=== PATIENT | female | born 1990 | race Caucasian/White ===

== ENCOUNTER → 2020-04-29 14:48 | Outpatient (BNVA) | payer OTHER, SELFPAY | PROVIDERS: PCP Internal Medicine; Visit Provider Nurse Practitioner | DX: Z76.89 Persons encountering health services in other specified circumstances (principal) ==

== ENCOUNTER 2020-04-30 08:27 | Outpatient (REF) | payer OTHER, SELFPAY ==
[2020-04-30 11:30] LABS: Hemoglobin 13.7 g/dl (12.0-16.0); Mean Corpuscular HGB Conc 32.6 g/dl (31.0-35.0); Mean Corpuscular Hemoglobin 30.1 pg (27.0-33.0); Mean Corpuscular Volume 92.3 fL (80-98); Mean Platelet Volume 10.7 fL (9.4-12.3); Platelet Count 287 X10*3/uL (160-400); Red Blood Count 4.55 X10*6/uL (4.20-5.50); Red Cell Distribution Width 12.4 % (11.0-16.0); White Blood Count 4.8 X10*3/uL (4.8-10.8)
[2020-04-30 11:38] LABS: Alanine Aminotransferase 97 U/L (0-31); Alkaline Phosphatase 53 U/L (39-117); Anion Gap 15 (12-20); Aspartate Amino Transferase 57 U/L (5-31); Blood Urea Nitrogen 15 mg/dL (9-16); Calcium 8.9 mg/dL (8.4-10.2); Carbon Dioxide 26 mmol/L (22-29); Chloride 104 mmol/L (96-108); Cholesterol 235 mg/dL; Estimated Glomerular Filt Rate > 60; Glucose Fasting 84 mg/dL (60-99); HDL Cholesterol 67 mg/dL; LDL Cholesterol Calculated 154 mg/dl; Potassium 4.5 mmol/l (3.3-5.1); Sodium 140 mmol/L (135-145); Total Protein 7.2 g/dL (6.5-8.0); Triglycerides 73 mg/dL
[2020-04-30 12:02] LABS: Thyroid Stimulating Hormone 1.54 mIU/mL (0.32-4.0)
== END 2020-04-30 08:28 | disposition home or self-care (01) ==
LOC: HO.HMGCLDS 08:27
PROVIDERS: PCP Internal Medicine; Visit Provider Internal Medicine
DX: E66.3 Overweight (principal); K58.9 Irritable bowel syndrome, unspecified; Z00.00 Encounter for general adult medical examination without abnormal findings
CPT/HCPCS: 36415; 80053; 80061; 84443; 85027

== ENCOUNTER 2020-05-06 08:15 | Outpatient (REF) | payer OTHER, SELFPAY ==
--- NOTE | 2020-05-06 08:19 | FL_ITS ---
EXAMINATION: FL SMALL BOWEL SERIES CLINICAL INFORMATION: Lower abdominal pain COMPARISON: None TECHNIQUE: Following a insect control aide image of the abdomen, contrast was administered orally, and interval abdominal radiographs were performed to assess for contrast progression through the small bowel. Following contrast transit through the small bowel and into the colon, the patient was placed on the fluoroscopy table, and multiple spot images were obtained. FINDINGS: [employer] image of the abdomen demonstrates a normal bowel gas pattern. There is normal transit time of contrast material through the small bowel, with contrast present in the colon by 1 hour 90 minutes. Small bowel loops are of normal caliber throughout the abdomen and pelvis. The jejunal and ileal fold patterns are normal, without evidence of abnormal thickening. No fixed regions of luminal narrowing are seen to suggest stricturing. The terminal ileum demonstrates a normal appearance. FLUOROSCOPY TIME: 0.2 DOSE AREA PRODUCT: 4.6 whitehead per centimeter squared. Total dose 14 mgy. 3 saved fluoroscopic images and 9 overheads. FL/FL small bowel follow through IMPRESSION: Normal small bowel series.
== END 2020-05-06 08:16 | disposition home or self-care (01) ==
LOC: HO.XRAY 08:15
PROVIDERS: PCP Internal Medicine; Visit Provider Nurse Practitioner
DX: R10.30 Lower abdominal pain, unspecified (principal)
CPT/HCPCS: 74250

== ENCOUNTER → 2020-05-22 13:41 | Outpatient (BNVA) | payer OTHER, SELFPAY | PROVIDERS: PCP Internal Medicine; Visit Provider Nurse Practitioner | DX: Z76.89 Persons encountering health services in other specified circumstances (principal) ==

== ENCOUNTER 2020-10-20 11:22 | Outpatient (REF) | payer OTHER, SELFPAY ==
[2020-10-20 14:11] LABS: MANUAL DIFF FLAG NO
[2020-10-20 14:24] LABS: Basophils Absolute Auto 0.1 X10*3/uL (0.0-0.2); Basophils Percent Auto 1.2 % (0-2); Eosinophils Absolute Auto 0.1 X10*3/uL (0.0-0.4); Eosinophils Percent Auto 1.4 % (0-4); Hematocrit 39.6 % (37-47); Hemoglobin 13.3 g/dl (12.0-16.0); Imm Gran Abs Auto 0.01 X10*3/uL (0.00-0.03); Imm Gran Pct Auto 0.2 % (0.0-0.4); Lymphocytes Absolute Auto 2.1 X10*3/uL (1.2-4.9); Lymphocytes Percent Auto 41.1 % (20-40); Mean Corpuscular HGB Conc 33.6 g/dl (31.0-35.0); Mean Corpuscular Hemoglobin 30.2 pg (27.0-33.0); Mean Corpuscular Volume 89.8 fL (80-98); Mean Platelet Volume 11.1 fL (9.4-12.3); Monocytes Absolute Auto 0.4 X10*3/uL (0.1-1.2); Monocytes Percent Auto 7.2 % (2-11); Neutrophils Absolute Auto 2.5 X10*3/uL (2.0-8.3); Neutrophils Percent Auto 48.9 % (45-73); Platelet Count 260 X10*3/uL (160-400); Red Blood Count 4.41 X10*6/uL (4.20-5.50); White Blood Count 5.1 X10*3/uL (4.8-10.8)
[2020-10-20 14:29] LABS: Anion Gap 15 (12-20); Blood Urea Nitrogen 15 mg/dL (9-16); Calcium 8.7 mg/dL (8.4-10.2); Carbon Dioxide 21 mmol/L (22-29); Chloride 109 mmol/L (96-108); Estimated Glomerular Filt Rate > 60; Glucose Random 89 mg/dL (60-115); Iron 87 mcg/dL (30-160); Percent Iron Saturation 19 % (15-50); Potassium 4.2 mmol/L (3.3-5.1); Sodium 141 mmol/L (135-145); Total Iron Binding Capacity 459 mcg/dL (228-428); Unsaturated Iron Binding 372 ug/dL
[2020-10-20 15:08] LABS: Vitamin B12 326 pg/mL (200-900)
== END 2020-10-20 11:23 | disposition home or self-care (01) ==
LOC: HO.HMGCLDS 11:22
PROVIDERS: PCP Internal Medicine; Visit Provider Physician Assistant
DX: R11.0 Nausea (principal); R53.1 Weakness; K58.9 Irritable bowel syndrome, unspecified; Z86.39 Personal history of other endocrine, nutritional and metabolic disease
CPT/HCPCS: 36415; 80048; 82607; 82746; 83540; 84443; 85025

== ENCOUNTER 2020-10-29 14:34 | Outpatient (REF) | payer OTHER, SELFPAY ==
[2020-11-05 03:52] LABS: HPV mRNA E6/E7 Not Detected (Not Detected)
== END 2020-10-29 14:35 | disposition home or self-care (01) ==
LOC: HO.LAB 14:34
PROVIDERS: Visit Provider Internal Medicine
DX: Z01.419 Encounter for gynecological examination (general) (routine) without abnormal findings (principal); Z11.51 Encounter for screening for human papillomavirus (HPV)
CPT/HCPCS: 87624; 88142

== ENCOUNTER 2021-03-13 18:15 | Emergency (ER) | payer OTHER, SELFPAY ==
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
[2021-03-13 18:34] VITALS: BP 134/78; PULSE 100; RESP 16; TEMP 36.8; O2SAT 99; BMI 38.4
[2021-03-13 20:45] VITALS: BP 125/80; PULSE 98; RESP 18; TEMP 36.6; O2SAT 96
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
[2021-03-13 21:28] VITALS: BP 133/84; PULSE 100; RESP 20; O2SAT 100
[2021-03-13 21:34] LABS: MANUAL DIFF FLAG NO
[2021-03-13 21:35] LABS: Basophils Absolute Auto 0.1 X10*3/uL (0.0-0.2); Basophils Percent Auto 0.5 % (0-2); Eosinophils Percent Auto 0.4 % (0-4); Hematocrit 39.9 % (37-47); Hemoglobin 13.7 g/dl (12.0-16.0); Imm Gran Abs Auto 0.04 X10*3/uL (0.00-0.03); Imm Gran Pct Auto 0.4 % (0.0-0.4); Lymphocytes Absolute Auto 2.3 X10*3/uL (1.2-4.9); Mean Corpuscular HGB Conc 34.3 g/dl (31.0-35.0); Mean Corpuscular Hemoglobin 30.2 pg (27.0-33.0); Mean Corpuscular Volume 88.1 fL (80-98); Mean Platelet Volume 10.3 fL (9.4-12.3); Monocytes Percent Auto 8.6 % (2-11); Neutrophils Absolute Auto 7.6 X10*3/uL (2.0-8.3); Neutrophils Percent Auto 69.1 % (45-73); Platelet Count 276 X10*3/uL (160-400); Red Blood Count 4.53 X10*6/uL (4.20-5.50)
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
[2021-03-13 21:40] LABS: Prothrombin Time 11.6 SEC (9.9-13.0)
[2021-03-13] MEDS: Ketorolac Tromethamine 15 MG/ML VIAL IVPUSH (21:45)
[2021-03-13] MEDS: LORazepam 2 MG/ML VIAL 0.25 MG IVPUSH (21:46)
[2021-03-13 21:51] LABS: Alanine Aminotransferase 40 U/L (0-31); Albumin Level 4.2 g/dL (3.5-5.0); Alkaline Phosphatase 48 U/L (39-117); Anion Gap 13 (12-20); Aspartate Amino Transferase 28 U/L (5-31); Bilirubin Total 0.9 mg/dL (0.0-1.0); Blood Urea Nitrogen 13 mg/dL (9-16); Calcium 9.7 mg/dL (8.4-10.2); Carbon Dioxide 26 mmol/L (22-29); Chloride 106 mmol/L (96-108); Creatinine Clr Calc Pharmacy 124.9; Estimated Glomerular Filt Rate > 60; Ethanol < 10 mg/dL; Glucose Random 100 mg/dL (60-115); Lipase 10 U/L (8-78); Potassium 4.1 mmol/L (3.3-5.1); Sodium 141 mmol/L (135-145); Total Protein 7.4 g/dL (6.5-8.0)
[2021-03-13 21:57] LABS: HCG Quantitative < 2 mIU/mL
[2021-03-13 21:58] LABS: Troponin-I High Sensitivity < 3.5 ng/L (<3.5-17.0)
[2021-03-13] MEDS: iohexoL 350 MG/ML 100 ML INFUS..BTL IV (22:10)
[2021-03-14] MEDS: Acetaminophen 325 MG TABLET 975 MG PO (00:10)
[2021-03-14 00:11] VITALS: RESP 16
[2021-03-14] MEDS: Diphth,Pertus(ACell),Tet Adult 0.5 ML SYRINGE IM (00:11)
== END 2021-03-14 00:50 | disposition home or self-care (01) ==
PROVIDERS: Emergency Provider Student in an Organized Health Care Education/Training Program
DX: S16.1XXA Strain of muscle, fascia and tendon at neck level, initial encounter (principal); M54.2 Cervicalgia; G44.309 Post-traumatic headache, unspecified, not intractable; M54.5 Low back pain; M25.512 Pain in left shoulder; M25.511 Pain in right shoulder; R10.9 Unspecified abdominal pain; V43.52XA Car driver injured in collision with other type car in traffic accident, initial encounter; Y93.9 Activity, unspecified; Y92.410 Unspecified street and highway as the place of occurrence of the external cause; Y99.9 Unspecified external cause status; Z79.899 Other long term (current) drug therapy
CPT/HCPCS: 36415; 70450; 70491; 71260; 73030; 73060; 74177; 80053; 82077; 83690; 84484; 84702; 85025; 85610; 86850; 86900; 86901; 90471; 90715; 93005; 96374; 96375; 99284; J1885; J2060; Q9967

== ENCOUNTER 2021-04-10 14:27 | Outpatient (REF) | payer OTHER, SELFPAY ==
[2021-04-10 16:39] LABS: Cholesterol 196 mg/dL; HDL Cholesterol 48 mg/dL; LDL Cholesterol Calculated 126 mg/dl; Triglycerides 113 mg/dL
== END 2021-04-10 14:28 | disposition home or self-care (01) ==
LOC: HO.HMGCLDS 14:27
PROVIDERS: PCP Internal Medicine; Visit Provider Internal Medicine
DX: Z00.00 Encounter for general adult medical examination without abnormal findings (principal)
CPT/HCPCS: 36415; 80061

== ENCOUNTER 2021-04-20 11:48 | Outpatient (REF) | payer OTHER, SELFPAY ==
[2021-04-23 00:57] LABS: TS Negative Control Passed; TS Panel A 0; TS Panel B 1; TS Positive Control Passed; TSpotTB Negative (SeeBelow)
== END 2021-04-20 11:49 | disposition home or self-care (01) ==
LOC: HO.HMGCLDS 11:48
PROVIDERS: PCP Internal Medicine; Visit Provider Internal Medicine
DX: Z11.1 Encounter for screening for respiratory tuberculosis (principal)
CPT/HCPCS: 36415; 86481

== ENCOUNTER 2021-05-04 10:00 | Outpatient (RCR) | payer OTHER, SELFPAY ==
--- NOTE | 2021-02-23 08:56 | MHC.PT.EP ---
[facility] [place] Office [place] Office [place] Office [address] Netta Rivera [address] [phone] F: [phone] F: [phone] F: [phone] F: [phone] Physical Therapy Plan of Care Date of Evaluation: Date of Surgery: N/A Diagnosis: herniated intervertebral disc of lumbar spine Assessment: 30 y/o RHD F referred for herniated intervertebral disc of lumbar spine presents with s/s consistent with postural dysfunction and upper crossed syndrome. She also reports cervical pain and MD was called for updated script. 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 Examination shows poor seated and standing posture with dowager's hump at C7, forward head, rounded shoulders, and increased thoracic curvature. Pt demonstrates limited shoulder flexion ROM, limited cervical ROM, decreased strength of shoulder muscles, and decreased strength of scapular musculature. Recommend PT 2x/week for 5 weeks to address impairments, implement HEP, and optimize functional mobility. Frequency and Duration: The patient will be seen 2x/week for 5 weeks Short Term Goals: 2 weeks: 1. I with HEP 2. Pt will demonstrate improved seated posture with teach back method of use of lumbar roll in seated 3. Pt will increase strength of scapular muscles B by 1 MMT score Half-Way Goals: 5 weeks: 1. I with HEP and self-management of sx 2. Pt will increase B shoulder flexion by >10 degrees to allow for improved overhead function 3. Pt will be able to work full shift with <3/10 pain in neck 4. Demonstrate proper body mechanics with rolling pts without cues Treatment Plan: Modalities to reduce pain, spasms and effusion. Manual therapy to restore motion and function. Therapeutic exercise to improve strength and flexibility. Neuromuscular re-education for posture and balance. Therapeutic activities to return to functional activities of daily living. Electronically signed by: Parisa Hickman PT Please sign and return to therapist. Thank you for your referral.
--- NOTE | 2021-05-15 08:24 | MHC.PT.DC ---
[facility] [place] Office [place] Office [place] Office [address] Netta Rivera 140 [facility] [phone] F: [phone] F: [phone] F: [phone] F: [phone] Physical Therapy Discharge Report Diagnosis: herniated intervertebral disc of lumbar spine Date of Surgery: N/A Date of Evaluation: 02/23/21 Date of Discharge: 05/15/21 Treatments to Date: 15 Cancellations to Date: 2 No Shows to Date: 0 Discharge Status: Achieved Goals Improved Function Independent with HEP Discharge Summary: Pt I with HEP and appropriate for d/c. Electronically signed by: Parisa Hickman PT Please sign and return to therapist. Thank you for your referral.
== END 2021-05-15 08:25 | disposition home or self-care (01) ==
LOC: HO.PTCHIC 10:00
PROVIDERS: PCP Internal Medicine; Visit Provider Internal Medicine
DX: M51.36 Other intervertebral disc degeneration, lumbar region (principal)
CPT/HCPCS: 97110; 97140; 97161

== ENCOUNTER 2021-07-01 07:00 | Outpatient (REF) | payer OTHER, SELFPAY ==
[2021-07-01 08:25] LABS: Influenza A PCR NEGATIVE (Negative); Influenza B PCR NEGATIVE (Negative); Resp Syncy Virus RNA Qual PCR NEGATIVE (Negative); SARS COV2 PCR INHOUSE NEGATIVE (Negative)
== END 2021-07-01 07:01 | disposition home or self-care (01) ==
LOC: HO.LAB 07:00
PROVIDERS: Visit Provider Internal Medicine
DX: Z20.822 Contact with and (suspected) exposure to COVID-19 (principal)
CPT/HCPCS: 0241U

== ENCOUNTER 2021-07-10 18:52 | Outpatient (REF) | payer OTHER, SELFPAY ==
[2021-07-10 19:17] LABS: COVID-19 Test Positive (Negative); IDNOW Serial# 9DD0AD1C
== END 2021-07-10 18:53 | disposition home or self-care (01) ==
LOC: HO.LAB 18:52
PROVIDERS: Referring Provider Internal Medicine; Visit Provider Internal Medicine
DX: Z20.822 Contact with and (suspected) exposure to COVID-19 (principal)
CPT/HCPCS: 87635

== ENCOUNTER 2021-08-13 11:04 | Outpatient (REF) | payer OTHER, SELFPAY ==
[2021-08-13 12:44] LABS: HCG Quantitative < 2 mIU/mL
== END 2021-08-13 11:05 | disposition home or self-care (01) ==
LOC: HO.LAB 11:04
PROVIDERS: PCP Internal Medicine; Visit Provider Physician Assistant
DX: N93.9 Abnormal uterine and vaginal bleeding, unspecified (principal)
CPT/HCPCS: 36415; 84702

== ENCOUNTER 2021-08-13 14:13 | Emergency (ER) | payer OTHER, SELFPAY ==
--- NOTE | ~2021-08-13 | US_ITS ---
EXAMINATION: ULTRASOUND PELVIC, COMPLETE CLINICAL INFORMATION: Bilateral pelvic pain. Left adnexal pain.-Vaginal bleeding COMPARISON: CT scan abdomen pelvis 08/13/2021. Pelvic ultrasound 07/14/2009 TECHNIQUE: Transvaginal: Used to better visualize pelvic structures Transabdominal: Not adequate for visualization. Spectral Doppler and color Doppler exam was utilized. LMP: 3 weeks ago FINDINGS: UTERUS: Uterus the midshaft position during transvaginal exam. Uterus is anteverted on the transabdominal study retroverted on transvaginal study. There is a myometrial fibroid in the anterior body measuring 1.3 x 1.2 x 1.3 cm. The uterus overall measures 8.4 x 3.9 x 4.2 cm. Endometrial thickness 0.9 cm. Nabothian cysts. ADNEXA: Ovarian vascularity:Doppler demonstrates both arterial and venous vascular flow in the right and left ovary. No evidence of ovarian torsion. Right Ovary: 2.9 x 1.8 x 1.7 cm. Volume 4.7 mL Left Ovary: 2.5 x 1.5 x 1.3 cm. Volume 2.6 mL Cul-de-sac: Small volume of simple fluid. US/US pelvic and transvaginal IMPRESSION: Normal ultrasound of pelvis.
--- NOTE | ~2021-08-13 | US_ITS ---
EXAMINATION: ULTRASOUND PELVIC, COMPLETE CLINICAL INFORMATION: Bilateral pelvic pain. Left adnexal pain.-Vaginal bleeding COMPARISON: CT scan abdomen pelvis 08/13/2021. Pelvic ultrasound 07/14/2009 TECHNIQUE: Transvaginal: Used to better visualize pelvic structures Transabdominal: Not adequate for visualization. Spectral Doppler and color Doppler exam was utilized. LMP: 3 weeks ago FINDINGS: UTERUS: Uterus the midshaft position during transvaginal exam. Uterus is anteverted on the transabdominal study retroverted on transvaginal study. There is a myometrial fibroid in the anterior body measuring 1.3 x 1.2 x 1.3 cm. The uterus overall measures 8.4 x 3.9 x 4.2 cm. Endometrial thickness 0.9 cm. Nabothian cysts. ADNEXA: Ovarian vascularity:Doppler demonstrates both arterial and venous vascular flow in the right and left ovary. No evidence of ovarian torsion. Right Ovary: 2.9 x 1.8 x 1.7 cm. Volume 4.7 mL Left Ovary: 2.5 x 1.5 x 1.3 cm. Volume 2.6 mL Cul-de-sac: Small volume of simple fluid. US/US pelvic ovarian doppler IMPRESSION: Normal ultrasound of pelvis.
--- NOTE | ~2021-08-13 | CT_ITS ---
EXAMINATION: CT ABDOMEN AND PELVIS WITHOUT CONTRAST CLINICAL INFORMATION: CVA tenderness on the right COMPARISON: CT abdomen pelvis 03/13/2021 TECHNIQUE: Multidetector volumetric imaging was performed from the superior aspect of the liver through the pubic symphysis. Sagittal and coronal reformatted images were obtained on the technologist's workstation. This CT examination was performed using dose optimization techniques as appropriate, variously including the following: *Automated exposure control *Adjustment of mA and/or kV according to patient size (this includes techniques or standardized protocols for targeted exams where dose is matched to indication/reason for exam; i.e. extremities or head) *Use of iterative reconstruction technique DLP: 989 mGy-cm FINDINGS: LUNG BASES: The visualized lung bases are unremarkable. LIVER, GALLBLADDER, AND BILIARY TREE: The liver is enlarged measuring 19.4 cm in greatest length and demonstrates hepatic steatosis. Similar findings were present on 03/13/2021. No focal hepatic lesion or biliary ductal dilatation is present. The gallbladder is contracted but otherwise unremarkable with no evidence of radiopaque gallstones, gallbladder wall thickening, or obvious pericholecystic inflammatory changes. PANCREAS: Unremarkable. SPLEEN: Unremarkable. ADRENAL GLANDS: Unremarkable. KIDNEYS AND URETERS: The kidneys are normal in size, shape, and attenuation. No hydronephrosis, hydroureter, or calculi seen. No perinephric stranding. BLADDER: The bladder is empty but no abnormality is seen. GASTROINTESTINAL TRACT: The small and large bowel are unremarkable. The appendix is unremarkable. ABDOMINAL WALL: No significant hernia is appreciated. LYMPH NODES: Normal. VASCULAR: Unremarkable. PELVIC VISCERA: Unremarkable. OSSEOUS STRUCTURES: Unremarkable. CT/CT abdomen pelvis wo con IMPRESSION: Enlarged fatty liver. A cause for the patient's acute right-sided CVA tenderness has not been found. Fleischner guidelines were followed.
[2021-08-13 14:17] VITALS: BP 143/82; PULSE 84; RESP 20; O2SAT 98; BMI 37.6
--- NOTE | 2021-08-13 15:11 | ED_ITS ---
HPI - Female Genitourinary General Chief complaint: Vaginal Bleeding Stated complaint: VAGINAL BLEEDING Time Seen by Provider: 08/13/21 14:33 Source: patient Mode of arrival: ambulatory Limitations: no limitations History of Present Illness HPI Narrative: 31 y/o female presents with heavy vaginal bleeding with clotting that started today. Patient has been spotting for the past week, she is 1 week early for her menses. She is on oral control.pills. She has pelvic pain which is worsening, It is a bilateral throbbing pain, and radiates to her back with right-sided low back pain. She is nauseous, and has had the chills. She had a tampon that was left in for 2 days, she removed it last night. States she feels very emotional today. 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 Patient had an outpatient HCG which was negative today. No concerns for STDs, no dysuria, no hematuria. Patient was well prior to today. Related Data Home Medications Medication Instructions Recorded Confirmed famotidine 40 mg tablet (Pepcid) 40 mg PO BEDTIME 04/28/20 01/10/21 Previous Rx's Medication Instructions Recorded dicyclomine 20 mg tablet 20 mg PO QID #120 tab 06/16/20 norethindrone acetate 1 mg-ethinyl 1 tab PO DAILY #63 tab 08/31/20 estradiol 20 mcg tablet (Loestrin) albuterol sulfate 90 mcg/actuation 2 puff INHALATION Q6H PRN #6.7 g 05/14/21 aerosol inhaler prednisone 50 mg tablet 50 mg PO DAILY 5 Days #5 tab 05/14/21 ondansetron 4 mg disintegrating 4 mg PO Q8H PRN #10 tab 08/13/21 tablet Allergies Allergy/AdvReac Type Severity Reaction Status Date / Time No Known Allergies Allergy Verified 04/10/21 13:36 [No Known Allergies*] Review of Systems Constitutional: Constitutional: Denies body ache(s), Reports chills, Denies fatigue, Denies fever(s), Denies headache(s), Denies malaise and Denies weakness Eyes: Eyes: Denies blurry vision and Denies diplopia ENT: Denies vertigo, Denies dizziness and Denies headache(s) Cardiovascular: Cardiovascular: Denies chest pain, Denies syncope, Denies leg edema, Denies lightheadedness, Denies Loss of Consciousness, Denies palpitations and Denies dyspnea Respiratory: Respiratory: Denies chest congestion, Denies cough and Denies dyspnea Gastrointestinal: Gastrointestinal: Denies abdominal pain, Denies hematochezia, Denies constipation, Denies diarrhea, Reports nausea and Denies vomiting Genitourinary: Genitourinary: Reports abnormal vaginal bleeding, Denies dysuria, Reports pelvic pain, Reports flank pain, Denies urinary hesitancy, Denies urinary urgency, Denies vaginal discharge and Denies vaginal odor Musculoskeletal: Musculoskeletal: Reports no additional musculoskeletal complaints Neurologic: Denies confusion, Denies vertigo, Denies dizziness, Denies syncope, Denies headache(s) and Denies weakness Psychiatric: Psychiatric: Denies anxiety, Denies confusion and Denies depression Endocrine: Endocrine: Denies fatigue and Denies palpitations PMFSH Past Medical History Medical History Abdominal cramping Annual physical exam Annual physical exam Anxiety Diarrhea Herniated intervertebral disc of lumbar spine IBS (irritable bowel syndrome) Overweight PTSD (post-traumatic stress disorder) Visit for pelvic exam Surgical History History of esophagogastroduodenoscopy (EGD) Hx of colonoscopy No pertinent past surgical history Family History Family History Father Bipolar disorder Stomach problems Mother Hemorrhoids Umbilical hernia Maternal Grandfather ALS (amyotrophic lateral sclerosis) Asbestosis Maternal Grandmother Multiple sclerosis Paternal Grandmother Cancer Paternal Grandfather No problems noted. Sister No problems noted. Sister No problems noted. Sister No problems noted. 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 Housing: House Alcohol intake: current Alcohol intake frequency: holidays/special occasions only Patient Tobacco Use Status: Never used Tobacco e-Cigarette/Vaping Use: Never Used Advance Directives: No Advance Directives Information Provided: No Current occupational status: employed Physical Exam Vital Signs: Vital Signs: Last Vital Signs Temp 98.1 F 08/13/21 15:48 Pulse 84 08/13/21 14:17 Resp 20 08/13/21 14:17 BP 143/82 H 08/13/21 14:17 Pulse Ox 98 08/13/21 14:17 BMI result Body Mass Index 37.6 Const: General: no acute distress, well developed, alert and awake; No confusion Nutritional Appearance: well nourished Orienta tion/consciousness: patient oriented x3 and No confusion Limitations: no limitations HENMT: Head: Yes normal to inspection, Yes normocephalic and Yes atraumatic Ears: hearing grossly normal bilaterally and external ears normal General nose exam: Normal external nose present Face and sinus: Yes normal facial exam Mouth: Normal oral and palatal mucosa present Throat: Yes posterior oropharynx normal Eyes: Conjunctivae: conjunctivae normal Pupils: Equal, round and reactive pupils present EOM: EOMs intact bilaterally Neck: Neck: Yes full ROM, Yes no lymphadenopathy and Yes supple Resp: Effort & Inspection: normal respiratory effort and able to speak in complete sentences Auscultation: clear to auscultation bilaterally, no cr ackles, no rales, no rhonchi and no wheezes Cardio: Rate: regular rate Rhythm: regular rhythm Heart sounds: S1 normal heart sound present and S2 normal heart sound present GI: Inspection: Yes normal to inspection Palpation (GI): Soft to palpation, nontender, no guarding and not rigid Percussion: Yes normal to percussion Auscultation: normal bowel sounds : External Female Exam: normal external appearance, No externally tender and No lesion Speculum Exam - Vagina: normal appearance of the vagina, normal palpation, no lesions, vaginal bleeding, No tissue present in vagina and nontender Speculum Exam - Cervix: normal appearance of the cervix and nontender Bimanual exam- vagina & uterus: normal palpation and No Cervical tenderness present Bimanual Exam- Adnexa, other: tender on the left OB/external & speculum: vaginal bleeding; No no tissue noted in vagina Skin: General skin exam: no rashes or lesions noted Neuro: General: patient oriented x3 and No confusion Cranial nerves: Yes Equal, round and reactive pupils present Extrem: General: Yes normal to inspection and Yes full ROM Psych: Appearance: grossly normal Affect: normal affect Attitude: cooperative Thought process: Normal thought process present Course Course Course Narrative: 31-year-old female with abnormal vaginal bleeding and pelvic pain. Patient also has pain radiating to her right flank. Patient has right CVA tenderness, and on CLICKER OPERATOR exam, patient has left adnexal tenderness, no cervical motion tenderness. Patient has dark red blood in her vaginal vault, no clots or tissue Afebrile will get CT to rule out stone, urine, labs, do pelvic ultrasound. Gave Zofran. Reevaluation(s) Reevaluation #1: Labs are unremarkable, urine has blood (from menses most likely) no infection. Ultrasound shows no torsion or cyst, shows small fibroid. CT is normal, no stone, no kidney abnormalities. Counseled patient to follow-up with family and consumer sciences professor for discussion of fibroid and abnormal vaginal bleeding. Prescribe Zofran, counseled to take 600 mg ibuprofen 3 times a day for crampy pain. All patient's questions were answered, patient verbalized agreement understanding of plan Ultrasound FINDINGS: UTERUS: Uterus the midshaft position during transvaginal exam. Uterus is anteverted on the transabdominal study retroverted on transvaginal study. There is a myometrial fibroid in the anterior body measuring 1.3 x 1.2 x 1.3 cm. The uterus overall measures 8.4 x 3.9 x 4.2 cm. Endometrial thickness 0.9 cm. Nabothian cysts. ADNEXA: Ovarian vascularity:Doppler demonstrates both arterial and venous vascular flow in the right and left ovary. No evidence of ovarian torsion. Right Ovary: 2.9 x 1.8 x 1.7 cm. Volume 4.7 mL Left Ovary: 2.5 x 1.5 x 1.3 cm. Volume 2.6 mL Cul-de-sac: Small volume of simple fluid. US/US pelvic ovarian doppler IMPRESSION: Normal ultrasound of pelvis. CT/CT abdomen pelvis wo con IMPRESSION: Enlarged fatty liver.? A cause for the patient's acute right-sided CVA tenderness has not been found. MDM - Female Genitourinary Lab Data Result diagrams: 08/13/21 15:23 08/13/21 15:23 Labs: Lab Results 08/13/21 08/13/21 08/13/21 Range/Units 15:20 15:20 15:23 WBC 5.1 (4.8-10.8) X10*3/uL RBC 4.41 (4.20-5.50) X10*6/uL Hgb 13.2 (12.0-16.0) g/dl Hct 39.4 (37.0-47.0) % MCV 89.3 (80.0-98.0) fL MCH 29.9 (27.0-33.0) pg MCHC 33.5 (31.0-35.0) g/dl RDW 12.1 (11.0-16.0) % Plt Count 295 (160-400) X10*3/uL MPV 10.2 (9.4-12.3) fL Immature Gran % (Auto) 0.0 (0.0-0.4) % Neut % (Auto) 55.7 (45-73) % Lymph % (Auto) 34.4 (20-40) % [place] % (Auto) 7.7 (2-11) % Eos % (Auto) 1.4 (0-4) % Baso % (Auto) 0.8 (0-2) % Lymph # (Auto) 1.7 (1.2-4.9) X10*3/uL Jasper # (Auto) 0.4 (0.1-1.2) X10*3/uL Eos # (Auto) 0.1 (0.0-0.4) X10*3/uL Baso # (Auto) 0.0 (0.0-0.2) X10*3/uL Abs Immat Gran (auto) 0.00 (0.00-0.03) X10*3/uL Absolute Neuts (auto) 2.8 (2.0-8.3) x10*3/uL Absolute Nucleated RBC 0.000 (0.0-0.012) X10*3/uL Nucleated RBC % (auto) 0.0 (0.0-0.2) /100WBC Sodium (135-145) mmol/L Potassium (3.3-5.1) mmol/L Chloride (96-108) mmol/L Carbon Dioxide (22-29) mmol/L Anion Gap (12-20) BUN (9-16) mg/dL Creatinine (0.5-1.4) mg/dL Estim Creat Clear Calc Estimated GFR Random Glucose (60-115) mg/dL Calcium (8.4-10.2) mg/dL Total Bilirubin (0.0-1.0) mg/dL AST (5-31) U/L ALT (0-31) U/L Alkaline Phosphatase (39-117) U/L Total Protein (6.5-8.0) g/dL Albumin (3.5-5.0) g/dL Urine Color YELLOW Urine Appearance CLEAR Urine pH 7.0 (5.0-8.0) Ur Specific [place] 1.025 (1.005-1.025) Urine Protein NEG (NEG-TRACE) MG/DL Urine Glucose (UA) NEG (NEG) MG/DL Urine Ketones NEG (NEG) MG/DL Urine Blood 3+ H (NEG) Urine Nitrite NEG (NEG) Ur Leukocyte Esterase NEG (NEG) Urine RBC 15-29 H (0) /HPF Urine WBC 0-2 (0-4) /HPF Ur Squamous Epith Cells 1+ /LPF Urine Bacteria 1+ /LPF Urine Mucus 1+ /LPF Urine Test NEGATIVE (NEGATIVE) 08/13/21 Range/Units 15:23 WBC (4.8-10.8) X10*3/uL RBC (4.20-5.50) X10*6/uL Hgb (12.0-16.0) g/dl Hct (37.0-47.0) % MCV (80.0-98.0) fL MCH (27.0-33.0) pg MCHC (31.0-35.0) g/dl RDW (11.0-16.0) % Plt Count (160-400) X10*3/uL MPV (9.4-12.3) fL Immature Gran % (Auto) (0.0-0.4) % Neut % (Auto) (45-73) % Lymph % (Auto) (20-40) % Jasper % (Auto) (2-11) % Eos % (Auto) (0-4) % Baso % (Auto) (0-2) % Lymph # (Auto) (1.2-4.9) X10*3/uL [place]asper # (Auto) (0.1-1.2) X10*3/uL Eos # (Auto) (0.0-0.4) X10*3/uL Baso # (Auto) (0.0-0.2) X10*3/uL Abs Immat Gran (auto) (0.00-0.03) X10*3/uL Absolute Neuts (auto) (2.0-8.3) x10*3/uL Absolute Nucleated RBC (0.0-0.012) X10*3/uL Nucleated RBC % (auto) (0.0-0.2) /100WBC Sodium 141 (135-145) mmol/L Potassium 4.3 (3.3-5.1) mmol/L Chloride 108 (96-108) mmol/L Carbon Dioxide 26 (22-29) mmol/L Anion Gap 11 L (12-20) BUN 15 (9-16) mg/dL Creatinine 0.85 (0.5-1.4) mg/dL Estim Creat Clear Calc 132.5 Estimated GFR > 60 Random Glucose 92 (60-115) mg/dL Calcium 9.6 (8.4-10.2) mg/dL Total Bilirubin 0.4 (0.0-1.0) mg/dL AST 21 (5-31) U/L ALT 37 H (0-31) U/L Alkaline Phosphatase 48 (39-117) U/L Total Protein 7.4 (6.5-8.0) g/dL Albumin 4.2 (3.5-5.0) g/dL Urine Color Urine Appearance Urine pH (5.0-8.0) Ur Specific [place] (1.005-1.025) Urine Protein (NEG-TRACE) MG/DL Urine Glucose (UA) (NEG) MG/DL Urine Ketones (NEG) MG/DL Urine Blood (NEG) Urine Nitrite (NEG) Ur Leukocyte Esterase (NEG) Urine RBC (0) /HPF Urine WBC (0-4) /HPF Ur Squamous Epith Cells /LPF Urine Bacteria /LPF Urine Mucus /LPF Urine Test (NEGATIVE) Discharge Plan Discharge Clinical Impression: Abnormal vaginal bleeding Patient Disposition: Home, Self-Care Instructions: Menorrhagia (ED) Additional Instructions: Please call primary care provider to discuss oral control.pills, small fibroid, and abnormal vaginal bleeding. Take Zofran as needed, take Motrin for pain, I suggest 600mg every 8 hours. Please return for any new or concerning symptoms. Prescriptions: New ondansetron 4 mg tablet,disintegrating 4 mg PO Q8H PRN (Reason: nausea and vomiting) Qty: 10 0RF No Action dicyclomine 20 mg tablet 20 mg PO QID Qty: 120 1RF norethindrone ac-eth estradiol [Loestrin 07/23 ()] 1-20 mg-mcg tablet 1 tab PO DAILY Qty: 63 3RF prednisone 50 mg tablet 50 mg PO DAILY 5 Days Qty: 5 0RF albuterol sulfate 90 mcg/actuation HFA aerosol inhaler 2 puff inhalation Q6H PRN (Reason: shortness of breath or wheezing) Qty: 6.7 0RF famotidine [Pepcid] 40 mg tablet 40 mg PO BEDTIME 0RF
[2021-08-13 15:31] LABS: MANUAL DIFF FLAG NO
[2021-08-13 15:33] LABS: Basophils Percent Auto 0.8 % (0-2); Eosinophils Absolute Auto 0.1 X10*3/uL (0.0-0.4); Eosinophils Percent Auto 1.4 % (0-4); Hematocrit 39.4 % (37.0-47.0); Hemoglobin 13.2 g/dl (12.0-16.0); Lymphocytes Absolute Auto 1.7 X10*3/uL (1.2-4.9); Lymphocytes Percent Auto 34.4 % (20-40); Mean Corpuscular HGB Conc 33.5 g/dl (31.0-35.0); Mean Corpuscular Hemoglobin 29.9 pg (27.0-33.0); Mean Corpuscular Volume 89.3 fL (80.0-98.0); Mean Platelet Volume 10.2 fL (9.4-12.3); Monocytes Absolute Auto 0.4 X10*3/uL (0.1-1.2); Monocytes Percent Auto 7.7 % (2-11); Neutrophils Absolute Auto 2.8 x10*3/uL (2.0-8.3); Neutrophils Percent Auto 55.7 % (45-73); Platelet Count 295 X10*3/uL (160-400); Red Blood Count 4.41 X10*6/uL (4.20-5.50); Red Cell Distribution Width 12.1 % (11.0-16.0); White Blood Count 5.1 X10*3/uL (4.8-10.8)
[2021-08-13 15:36] LABS: Appearance Urine CLEAR; Color Urine YELLOW; Glucose Urine UA NEG (NEG); Leukocyte Esterase Urine NEG (NEG); Nitrite Urine NEG (NEG); Specific Gravity - Urine 1.025 (1.005-1.025); UACC Culture Trigger NO; UPreg QC Valid YES; Urine Blood 3+ (NEG); Urine Ketones NEG (NEG); Urine Pregnancy NEGATIVE (NEGATIVE); Urine Protein NEG (NEG-TRACE)
[2021-08-13] MEDS: Ondansetron ODT 4 MG TAB.RAPDIS TRANSLINGU (15:46)
[2021-08-13 15:48] VITALS: TEMP 36.7
[2021-08-13 16:01] LABS: WBC Urine 0-2 /HPF (0-4)
[2021-08-13 16:02] LABS: Bacteria Urine 1+ /LPF; Mucus Urine 1+ /LPF; Squamous Epithelial Cell Urine 1+ /LPF
[2021-08-13 16:07] LABS: Alanine Aminotransferase 37 U/L (0-31); Albumin Level 4.2 g/dL (3.5-5.0); Alkaline Phosphatase 48 U/L (39-117); Anion Gap 11 (12-20); Aspartate Amino Transferase 21 U/L (5-31); Bilirubin Total 0.4 mg/dL (0.0-1.0); Blood Urea Nitrogen 15 mg/dL (9-16); Calcium 9.6 mg/dL (8.4-10.2); Carbon Dioxide 26 mmol/L (22-29); Chloride 108 mmol/L (96-108); Creatinine Clr Calc Pharmacy 132.5; Estimated Glomerular Filt Rate > 60; Glucose Random 92 mg/dL (60-115); Potassium 4.3 mmol/L (3.3-5.1); Sodium 141 mmol/L (135-145); Total Protein 7.4 g/dL (6.5-8.0)
[2021-08-13 17:50] VITALS: BP 121/80; PULSE 82; RESP 16; O2SAT 100
== END 2021-08-13 17:52 | disposition home or self-care (01) ==
PROVIDERS: Physician Assistant; Emergency Provider Emergency Medicine Emergency Medical Services; PCP Internal Medicine
DX: N93.8 Other specified abnormal uterine and vaginal bleeding (principal); R10.2 Pelvic and perineal pain; M54.50 Low back pain, unspecified; R60.0 Localized edema; Z79.899 Other long term (current) drug therapy
CPT/HCPCS: 36415; 74176; 76830; 76856; 80053; 81001; 81025; 85025; 93975; 99283; 99284

== ENCOUNTER → 2021-10-29 13:26 | Outpatient (BNVA) | payer OTHER, SELFPAY | PROVIDERS: PCP Internal Medicine; Visit Provider Advanced Practice Midwife | DX: N92.0 Excessive and frequent menstruation with regular cycle (principal) | CPT/HCPCS: 81025 ==

== ENCOUNTER 2022-04-14 12:52 | Outpatient (REF) | payer OTHER, SELFPAY ==
[2022-04-16 23:26] LABS: TS Negative Control Passed; TS Panel A 0; TS Panel B 0; TS Positive Control Passed; TSpotTB Negative (Negative)
== END 2022-04-14 12:53 | disposition home or self-care (01) ==
LOC: HO.HMGCLDS 12:52
PROVIDERS: PCP Internal Medicine; Visit Provider Internal Medicine
DX: Z11.1 Encounter for screening for respiratory tuberculosis (principal)
CPT/HCPCS: 36415; 86481

== ENCOUNTER 2022-07-29 11:35 | Outpatient (REF) | payer OTHER, SELFPAY ==
[2022-07-30 12:18] LABS: BV Int Neg Control Negative (Negative); BV Int Pos Control Positive (Positive)
== END 2022-07-29 11:36 | disposition home or self-care (01) ==
LOC: HO.LNP 11:35
PROVIDERS: Visit Provider Internal Medicine
DX: N94.9 Unspecified condition associated with female genital organs and menstrual cycle (principal)
CPT/HCPCS: 87480; 87510; 87660

== ENCOUNTER 2022-09-06 07:05 | Outpatient (REF) | payer OTHER, SELFPAY ==
--- NOTE | ~2022-09-06 | MM_ITS ---
EXAMINATION: MM DIAGNOSTIC DIGITAL BREAST TOMOSYNTHESIS, BILATERAL US DIAGNOSTIC ULTRASOUND BREAST, LEFT CLINICAL INFORMATION: 32-year-old with chronic palpable area posterior lower inner left breast along with tenderness, approximately one year. No family history breast cancer. No prior breast imaging. The lifetime risk of breast cancer based on the Tyrer-Cuzick Model is 15%. COMPARISON: None (current study represents initial baseline exam). TECHNIQUE: Digital breast tomosynthesis is performed in both the craniocaudal and mediolateral oblique views along with computer-aided detection (CAD). Synthesized 2D images are generated from the tomosynthesis. Additional exaggerated right CC and left MLO views are obtained. Ultrasound left breast is targeted to the area of clinical concern posterior lower inner breast. Patient is able to point to the area of concern at time of imaging. Grayscale imaging and color Doppler are performed without and with harmonics. FINDINGS: The breasts are heterogeneously dense, which may obscure small masses (ACR BI-RADS breast composition Category c). Breast tissue composition borders on average fibroglandular. There is mild asymmetry of the breasts, the right is slightly larger. There is no significant mass or architectural abnormality or abnormal calcifications. The axilla and skin contours are unremarkable. There is no skin thickening or coarsening of the Santy's ligaments. Ultrasound demonstrates no cystic or solid mass or architectural abnormality. No skin thickening or edema tracking in soft tissue planes. No intradermal lesion. Results are discussed with the patient at time of visit. There is no imaging correlate for patient's symptoms. Patient should be managed based on the clinical impression. Patient to follow-up with her PCP. MM/MM tomosynthesis diagnostic BI IMPRESSION: -No mammographic evidence of malignancy or inflammatory changes. -Unremarkable targeted left breast ultrasound. ASSESSMENT: BI-RADS 2: Benign RECOMMENDATION: 1. Patient should be managed based on the clinical impression. 2. Otherwise, routine annual screening mammography, beginning age 40, or earlier as clinical risk factors warrant. This patient's information was entered into a reminder system with a target due date for their next mammogram.
[2022-09-06 07:15] LABS: MANUAL DIFF FLAG NO
[2022-09-06 08:00] LABS: Basophils Absolute Auto 0.1 X10*3/uL (0.0-0.2); Basophils Percent Auto 1.2 % (0-2); Eosinophils Absolute Auto 0.1 X10*3/uL (0.0-0.4); Eosinophils Percent Auto 1.6 % (0-4); Hematocrit 40.6 % (37.0-47.0); Hemoglobin 13.4 g/dl (12.0-16.0); Imm Gran Abs Auto 0.01 X10*3/uL (0.00-0.03); Imm Gran Pct Auto 0.2 % (0.0-0.4); Lymphocytes Absolute Auto 2.2 X10*3/uL (1.2-4.9); Lymphocytes Percent Auto 37.9 % (20-40); Mean Corpuscular Volume 87.9 fL (80.0-98.0); Mean Platelet Volume 10.4 fL (9.4-12.3); Monocytes Absolute Auto 0.5 X10*3/uL (0.1-1.2); Monocytes Percent Auto 8.3 % (2-11); Neutrophils Absolute Auto 2.9 x10*3/uL (2.0-8.3); Neutrophils Percent Auto 50.8 % (45-73); Platelet Count 267 X10*3/uL (160-400); Red Blood Count 4.62 X10*6/uL (4.20-5.50); Red Cell Distribution Width 12.2 % (11.0-16.0); White Blood Count 5.7 X10*3/uL (4.8-10.8)
[2022-09-06 08:04] LABS: Alanine Aminotransferase 17 U/L (0-31); Albumin Level 3.9 g/dL (3.5-5.0); Alkaline Phosphatase 44 U/L (39-117); Anion Gap 16 (12-20); Aspartate Amino Transferase 13 U/L (5-31); Bilirubin Total 0.8 mg/dL (0.0-1.0); Blood Urea Nitrogen 16 mg/dL (9-16); Calcium 9.3 mg/dL (8.4-10.2); Carbon Dioxide 19 mmol/L (22-29); Chloride 108 mmol/L (96-108); Cholesterol 209 mg/dL; Estimated Glomerular Filt Rate > 60; Glucose Fasting 97 mg/dL (60-99); HDL Cholesterol 57 mg/dL; LDL Cholesterol Calculated 138 mg/dl; Potassium 4.1 mmol/L (3.3-5.1); Sodium 139 mmol/L (135-145); Total Protein 6.9 g/dL (6.5-8.0); Triglycerides 73 mg/dL
[2022-09-06 08:20] LABS: TSH reflex Free T4 2.37 uIU/mL (0.32-4.0)
[2022-09-06 08:58] LABS: HIV AB/AG Nonreactive (Nonreactive); HIV Num 1 0.06 S/CO (0.00-0.99); Syphilis Screen Nonreactive (Nonreactive); ~HepC Num1 0.22 S/CO (0.00-0.79); ~Hepatitis C Antibody Nonreactive (Nonreactive)
[2022-09-06 10:48] LABS: CT PCR NOT DETECTED (Not Detect.); NG PCR NOT DETECTED (Not Detect.)
[2022-09-12 16:13] LABS: Cortisol, Free 0.87 mcg/dL
== END 2022-09-06 07:06 | disposition home or self-care (01) ==
LOC: HO.MAMMO 07:05
PROVIDERS: PCP Internal Medicine; Visit Provider Internal Medicine
DX: Z00.00 Encounter for general adult medical examination without abnormal findings (principal); Z11.4 Encounter for screening for human immunodeficiency virus [HIV]; N63.24 Unspecified lump in the left breast, lower inner quadrant; Z20.2 Contact with and (suspected) exposure to infections with a predominantly sexual mode of transmission
CPT/HCPCS: 0353U; 76642; 77062; 77066; 80053; 80061; 82530; 84443; 85025; 86780; 86803; 87389

== ENCOUNTER 2022-09-28 13:38 | Outpatient (REF) | payer OTHER, SELFPAY ==
[2022-09-29 05:42] LABS: CT PCR NOT DETECTED (Not Detect.); NG PCR NOT DETECTED (Not Detect.)
[2022-09-29 09:29] LABS: BV Int Neg Control Negative (Negative); BV Int Pos Control Positive (Positive)
== END 2022-09-28 13:39 | disposition home or self-care (01) ==
LOC: HO.LAB 13:38
PROVIDERS: PCP Internal Medicine; Visit Provider Advanced Practice Midwife
DX: N94.9 Unspecified condition associated with female genital organs and menstrual cycle (principal); N76.0 Acute vaginitis; B96.89 Other specified bacterial agents as the cause of diseases classified elsewhere; R30.0 Dysuria; Z20.2 Contact with and (suspected) exposure to infections with a predominantly sexual mode of transmission
CPT/HCPCS: 0353U; 81003; 87480; 87510; 87660

== ENCOUNTER 2022-09-28 14:32 | Outpatient (REF) | payer OTHER, SELFPAY ==
[2022-10-01 09:28] LABS: HPV mRNA E6/E7 rflx Not Detected (Not Detected)
== END 2022-09-28 14:33 | disposition home or self-care (01) ==
LOC: HO.LNP 14:32
PROVIDERS: Visit Provider Advanced Practice Midwife
DX: Z01.419 Encounter for gynecological examination (general) (routine) without abnormal findings (principal); N94.9 Unspecified condition associated with female genital organs and menstrual cycle; R30.0 Dysuria; Z20.2 Contact with and (suspected) exposure to infections with a predominantly sexual mode of transmission
CPT/HCPCS: 87624; 88142

== ENCOUNTER 2023-10-05 13:11 | Outpatient (AMB) | payer OTHER, SELFPAY ==
[2023-10-05 13:14] VITALS: BP 106/66; BMI 33.8
--- NOTE | 2023-10-05 13:14 | MHC.OFFVIS ---
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 Doing well with no concerns. She tries to eat healthy and stays active with exercise, in weight management at [facility]. Taking Jolessa, doing well. She denies any contraindications to control such as: migraines with aura, history of DVT or pulmonary emboli, high blood pressure, liver disease, thrombolic disorders, Lupus, +MARIMAR, breast cancer, or smoking. Currently is sexually active with a long-term partner She denies vaginal itching and irritation. Denies family history of breast, ovarian or colon cancer. Last pap smear 2019, negative. She currently has her menses and declines an exam today including the breast exam. [facility] Medical History Annual physical exam Anxiety Visit for pelvic exam Herniated intervertebral disc of lumbar spine IBS (irritable bowel syndrome) Overweight Annual physical exam PTSD (post-traumatic stress disorder) Abdominal cramping Diarrhea Surgical History History of esophagogastroduodenoscopy (EGD) Hx of colonoscopy No pertinent past surgical history Family History Father Bipolar disorder Stomach problems Mother Hemorrhoids Umbilical hernia Maternal Grandfather ALS (amyotrophic lateral sclerosis) Asbestosis Maternal Grandmother Multiple sclerosis Paternal Grandmother Cancer Paternal Grandfather No problems noted. Sister No problems noted. Sister No problems noted. Sister No problems noted. 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 [employer] Current occupational exposures/hazards: No Sexual orientation: Straight/Heterosexual Gender identity: Female Cognitive needs: No Hearing needs: No Vision needs: No Female Reproductive History Menstrual Age of Menarche: 14 Duration of menses: 3-5 days Date of last menstrual period: 10/02/23 control method: pills Total pregnancies: 0 Date of last pap smear: 09/28/22 (neg pap and hpv) Review of Systems Const All systems reviewed & are unremarkable except as noted in HPI and below Reports as per HPI Eyes Reports no additional complaints ENT Reports no additional complaints Card Reports no additional complaints Resp Reports no additional complaints GI Reports as per HPI and Reports no additional complaints Reports as per HPI Musc Reports no additional complaints Skin/Breast Reports as per HPI Neuro Reports no additional complaints Psych Reports no additional complaints Endo Reports no additional complaints Aleksandar/Lymph Reports no additional complaints Aller/Immun Reports no additional complaints Physical Exam Vital Signs: Last Vital Signs BP 106/66 10/05/23 13:14 BMI result Body Mass Index 33.8 Const General: cooperative, healthy appearing, no acute distress, well developed and alert Orientation/consciousness: patient oriented x3 HEENT Head: Yes normal to inspection Eyes General: appearance normal, both eyes and all related structures Neck Neck: Yes normal visual inspection Thyroid: Thyroid normal Chest Chest palpation & inspection: normal inspection of the chest and other (no puckering, dimpling, peau de orange, retraction, discharge, masses) Breast/axilla inspection: normal inspection of the breasts Breast/axilla palpation: normal palpation of the breasts Resp Effort & Inspection: normal respiratory effort GI Inspection: Yes normal to inspection Palpation (GI): Soft to palpation Rectal Exam - Female: deferred General: Yes bladder normal to palpation External Female Exam: normal external appearance and normal appearance of the urethra Speculum Exam - Vagina: normal appearance of the vagina, normal palpation and normal vaginal discharge Speculum Exam - Cervix: normal appearance of the cervix and normal palpation Bimanual exam- vagina & uterus: normal bimanual exam, normal palpation, uterine size normal, bladder normal to palpation, normal palpation and non-tender Bimanual Exam- Adnexa, other: no masses Skin General skin exam: no rashes or lesions noted Rashes: no rashes Neuro General: patient oriented x3 Cognition (Neuro): normal cognition Extrem General: Yes normal to inspection Psych Appearance: well kempt Attitude: cooperative Thought process: Normal thought process present Assessment & Plan Assessment & Plan (1) Surveillance for control, oral contraceptives: Code(s): Z30.41 - Encounter for surveillance of contraceptive pills Plan Discussed: Current recommendations for pap smears per ASCCP guidelines. Currently up-to-date. Breast awareness and periodic breast exams. Maintain a healthy lifestyle including a well balanced diet and routine exercise. control hormone use warnings: go to ER if and loss of vision, blindness, severe headache, chest pain or difficulty breathing, severe abdominal pain, or any pain or swelling in an extremity. Patient verbalizes understanding and agrees to the plan of care. She was given opportunity to ask questions and all questions were answered to the best of my ability. RTO in one year for annual waterproof material folder examination. This note is constructed using voice recognition software. While every effort has been made to ensure accuracy, acid pump operator errors may have been included. Medications: Refilled levonorgestrel-ethinyl estrad 0.15 mg-30 mcg (91) (Jolessa) 1 tab PO DAILY 91 ea 4RF Coding Level of Care Code Est Pt Level 3 (41523) Diagnoses Surveillance for control, oral contraceptives Z30.41
== END 2023-10-05 13:46 | disposition home or self-care (01) ==
LOC: HO.HWS 13:11
PROVIDERS: PCP Nurse Practitioner Family; Visit Provider Advanced Practice Midwife
DX: Z30.41 Encounter for surveillance of contraceptive pills (principal)
CPT/HCPCS: 99213

== ENCOUNTER → 2023-10-05 13:11 | Outpatient (BNVA) | payer OTHER, SELFPAY | PROVIDERS: PCP Nurse Practitioner Family; Visit Provider Advanced Practice Midwife ==

== ENCOUNTER 2024-10-09 07:41 | Outpatient (AMB) | payer OTHER, SELFPAY ==
--- OUTSIDE RECORDS SUMMARY | 2024-10-09 07:43 | XMS_ITS | Clinical Summary ---
Author Organization [address] [place] [address] [place] [phone] Phone Care Team Providers Care Fuse Maker Name Role Phone Cailin Horta MD Primary Care Provider [phone] Allergies No known active allergies Medications ARIPiprazole (ABILIFY) 5 mg tablet Take 1 tablet (5 mg total) by mouth 1 (one) time each day. Active buPROPion XL (WELLBUTRIN XL) 300 mg 24 hr tablet Take 1 Tablet by mouth every morning for 180 days. 4 Active topiramate (TOPAMAX) 50 mg tablet Take 1 Tablet by mouth daily for 30 days Active phentermine 15 mg capsuleIndicati ons:Obesity, unspecified TAKE 1 CAPSULE BY MOUTH 2 TIMES DAILY FOR 60 DAYS. 60 capsule 1 4 Active naltrexone (DEPADE) 50 mg tablet TAKE 1/2 TABLET (25 MG TOTAL) BY MOUTH DAILY 15 tablet 2 5 Active naltrexone (DEPADE) 50 mg tablet Take 0.5 tablets (25 mg total) by mouth 1 (one) time each day. 15 each 2 4 025 Discontinued Encounters Date Type Department Care Team Description 08/28/2024 8:15 AM EST Office Visit Bariatric Surgery - [address] [place] [phone] Jonas Lara MD Class 1 obesity due to excess calories with body mass index (BMI) of 34.0 to 34.9 in adult, unspecified whether serious comorbidity present (Primary Dx) from Last 3 Months Social History Tobacco Use Types Packs/Day Years Used Date Smoking Tobacco: Never Smokeless Tobacco: Never Comments Unknown Sex and Gender Information Value Date Recorded Sex Assigned at Not on file Legal Sex Female 8:53 PM EST Gender Identity Not on file Sexual Orientation Not on file Obstetrics History Last Filed Vital Signs Vital Sign Reading Time Taken Comments Blood Pressure 119/77 08/28/2024 8:33 AM EST Pulse 86 08/28/2024 8:33 AM EST Temperature 36.6 ??C (97.8 ??F) 08/28/2024 8:33 AM ES T Respiratory Rate - - Oxygen Saturation - - Inhaled Oxygen Concentration - - Weight 103 kg (227 lb) 08/28/2024 8:33 AM EST Height 172.7 cm (5' 8 ) 08/28/2024 8:33 AM EST Body Mass Index 34.52 08/28/2024 8:33 AM EST Plan of Treatment Upcoming Encounters Date Type Department Care Team ([facility] st Contact Info) Description 02/26/2025 8:15 AM EDT Office Visit Bariatric Surgery - [place] [address] [facility] [address] [place] [phone] Jonas Lara MD [address] [facility] [address] [place] [address] Health Maintenance Due Date Last Done Comments Hepatitis B Vaccines (1 of 3 - 19+ 3-dose series) 2011 Cervical Cancer Screening: Pap Smear 2013 Depression Screening 07/29/2023 HIV Screening 07/29/2023 Hepatitis C Screening 07/29/2023 Social Influencers of Health Screening 07/29/2023 Cholesterol Screening (Lipid Panel) 05/14/2029 05/14/2024 DTaP,Tdap,and Td Vaccines (2 - Td or Tdap) 03/14/2031 03/14/2021 COVID-19 Vaccine Completed 05/16/2024, , 08/12/2020, Additional history exists Influenza Vaccine Completed 05/16/2024, , 04/10/2021, Additional history exists HIB Vaccines Aged Out No longer eligi ble based on patient's age to complete this topic HPV Vaccines Aged Out No longer eligi ble based on patient's age to complete this topic Hepatitis A Vaccines Aged Out No long er eligible based on patient's age to complete this topic IPV Vaccines Aged Out No longer eligi ble based on patient's age to complete this topic MMR Vaccines Aged Out No longer eligi ble based on patient's age to complete this topic Meningococcal ACWY Vaccine Aged Out N o longer eligible based on patient's age to complete this topic Meningococcal B Vaccine Aged Out No l onger eligible based on patient's age to complete this topic Pneumococcal Vaccine: Pediatrics (0 to 5 Years) and At-Risk Patients (6 to 64 Years) Aged Out No longer eligible based on patient's age to complete this topic RSV Immunization Patients Under 20 months Aged Out No longer eligible based on patient's age to complete this topic Varicella Vaccines Aged Out No longer eligible based on patient's age to complete this topic Procedures Procedure Name Priority Date/Time Associated Diagnosis Comments LIPID PANEL WITH REFLEX TO DIRECT LDL Routine 05/14/2024 8:12 AM EST Obesity from Last 3 Months or Most Recently Relevant to Health Maintenance Results * (ABNORMAL) Lipid panel with reflex to direct LDL (05/14/2024 8:12 AM EST) Cholesterol 205(H) 0 - 200 mg/dL LAB CHEMISTRY METHOD 05/14/2024 10:13 AM EST [facility] Triglycerides 87 0 - 150 mg/dL LAB CHEMISTRY METHOD 05/14/2024 10:13 AM EST [facility] HDL 64 >=40 mg/dL LAB CHEMISTRY METHOD 05/14/2024 10:13 AM EST [facility] LDL Calculated 124(H) 0 - 100 mg/dL LAB CHEMISTRY METHOD 05/14/2024 10:13 AM EST [facility] VLDL Cholesterol Angel Luis 17.4 mg/dL LAB CHEMISTRY METHOD 05/14/2024 10:13 AM EST [facility] Non HDL Chol. (LDL+VLDL) 141 <145 mg/dL LAB CHEMISTRY METHOD 05/14/2024 10:13 AM EST [facility] Chol/HDL Ratio 3.2 0.0 - 4.4 LAB CHEMISTRY METHOD 05/14/2024 10:13 AM EST [facility] Blood Venous blood specimen / Unknown Venipuncture / Unknown 05/14/2024 8:12 AM EST 05/14/2024 8:12 AM EST us Jonas Lara MD LAB BLOOD ORDERABLES Final R esult [facility] [address] [place] [address], from Last 3 Months or Most Recently Relevant to Health Maintenance Insurance [facility] Care Teams Fuse Maker Relationship Specialty Start Date End Date Cailin Horta MD [address] [facility] [place] [phone] PCP - General Internal Medicine 05/11/24
--- NOTE | 2024-10-09 07:46 | MHC.OFFVIS ---
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 Doing well with no supervisor testing concerns. Doing well on OCPs. Recently engaged, wedding in March. She denies any contraindications to control such as: migraines with aura, history of DVT or pulmonary emboli, high blood pressure, liver disease, thrombolic disorders, Lupus, +MARIMAR, breast cancer, or smoking. She denies vaginal itching and irritation. STI screening offered; she declines. She tries to eat healthy and stays active with exercise. Denies family history of breast, ovarian or colon cancer. Last pap smear 2022, negative. [facility] Medical History Annual physical exam Anxiety Visit for pelvic exam Herniated intervertebral disc of lumbar spine IBS (irritable bowel syndrome) Overweight Annual physical exam PTSD (post-traumatic stress disorder) Abdominal cramping Diarrhea Surgical History History of esophagogastroduodenoscopy (EGD) Hx of colonoscopy No pertinent past surgical history Family History Father Bipolar disorder Stomach problems Mother Hemorrhoids Umbilical hernia Maternal Grandfather ALS (amyotrophic lateral sclerosis) Asbestosis Maternal Grandmother Multiple sclerosis Paternal Grandmother Cancer Paternal Grandfather No problems noted. Sister No problems noted. Sister No problems noted. Sister No problems noted. 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 [employer] Current occupational exposures/hazards: No Sexual orientation: Straight/Heterosexual Gender identity: Female Cognitive needs: No Hearing needs: No Vision needs: No Female Reproductive History Menstrual Age of Menarche: 14 Duration of menses: 3-5 days Date of last menstrual period: 09/30/24 control method: pills Total pregnancies: 0 Date of last pap smear: 09/28/22 (neg pap and hpv) Review of Systems Const All systems reviewed & are unremarkable except as noted in HPI and below Reports as per HPI Eyes Reports no additional complaints ENT Reports no additional complaints Card Reports no additional complaints Resp Reports no additional complaints GI Reports as per HPI and Reports no additional complaints Reports as per HPI Musc Reports no additional complaints Skin/Breast Reports as per HPI Neuro Reports no additional complaints Psych Reports no additional complaints Endo Reports no additional complaints Aleksandar/Lymph Reports no additional complaints Aller/Immun Reports no additional complaints Physical Exam Vital Signs: Last Vital Signs BP 100/66 10/09/24 07:47 BMI result Body Mass Index 32.5 Const General: cooperative, healthy appearing, no acute distress, well developed and alert Orientation/consciousness: patient oriented x3 HEENT Head: Yes normal to inspection Eyes General: appearance normal, both eyes and all related structures Neck Neck: Yes normal visual inspection Thyroid: Thyroid normal Chest Chest palpation & inspection: normal inspection of the chest and other (no puckering, dimpling, peau de orange, retraction, discharge, masses) Breast/axilla inspection: normal inspection of the breasts Breast/axilla palpation: normal palpation of the breasts Resp Effort & Inspection: normal respiratory effort GI Inspection: Yes normal to inspection Palpation (GI): Soft to palpation Rectal Exam - Female: deferred General: Yes bladder normal to palpation External Female Exam: normal external appearance and normal appearance of the urethra Speculum Exam - Vagina: normal appearance of the vagina, normal palpation and normal vaginal discharge Speculum Exam - Cervix: normal appearance of the cervix and normal palpation Bimanual exam- vagina & uterus: normal bimanual exam, normal palpation, uterine size normal, bladder normal to palpation, normal palpation and non-tender Bimanual Exam- Adnexa, other: no masses Skin General skin exam: no rashes or lesions noted Rashes: no rashes Neuro General: patient oriented x3 Cognition (Neuro): normal cognition Extrem General: Yes normal to inspection Psych Attitude: cooperative Thought process: Normal thought process present Assessment & Plan Assessment & Plan (1) Encounter for well woman exam with routine gynecological exam: Code(s): Z01.419 - Encounter for gynecological examination (general) (routine) without abnormal findings Category: Medical Plan Discussed: Current recommendations for pap smears per ASCCP guidelines. Breast awareness and periodic breast exams. Maintain a healthy lifestyle including a well balanced diet and routine exercise. control hormone use warnings: go to ER if and loss of vision, blindness, severe headache, chest pain or difficulty breathing, severe abdominal pain, or any pain or swelling in an extremity. Patient verbalizes understanding and agrees to the plan of care. She was given opportunity to ask questions and all questions were answered to the best of my ability. RTO in one year for annual supervisor testing examination. This note is constructed using voice recognition software. While every effort has been made to ensure accuracy, enterprise resource analyst errors may have been included. Medications: New levonorgestrel-ethinyl estrad 0.15 mg-30 mcg (91) (Jolessa) 1 tab PO DAILY 91 ea 4RF Coding Level of Care Code Est Pt Prev Care 18-39y(66901) Diagnoses Encounter for well woman exam with routine gynecological exam Z01.419
[2024-10-09 07:47] VITALS: BP 100/66; BMI 32.5
== END 2024-10-09 08:12 | disposition home or self-care (01) ==
LOC: HO.HWS 07:41
PROVIDERS: PCP Nurse Practitioner Family; Visit Provider Advanced Practice Midwife
DX: Z01.419 Encounter for gynecological examination (general) (routine) without abnormal findings (principal)
CPT/HCPCS: 99395; 99459

== ENCOUNTER → 2024-10-09 07:41 | Outpatient (BNVA) | payer OTHER, SELFPAY | PROVIDERS: PCP Nurse Practitioner Family; Visit Provider Advanced Practice Midwife ==